=== PATIENT | male | born 1965 | race Caucasian/White ===

== ENCOUNTER 2018-07-02 05:50 | Day surgery (SDC) | payer OTHER ==
[2018-07-02] MEDS ORDERED: Buffered Lidocaine 0.9% SYRIN* 5 ML/SYR SYRINGE INTRADERM ONE (06:00)
[2018-07-02] MEDS ORDERED: Acetaminophen TAB* 325 MG PO ONE (06:00)
[2018-07-02] MEDS ORDERED: Lactated Ringers 1000 ML Bag* 1,000 ML IV SCH ×3 (06:00→12:00)
[2018-07-02] MEDS ORDERED: Naloxone* 0.4 MG/ML 1 ML VIAL IV PRN ×2 (08:22→11:20)
[2018-07-02] MEDS ORDERED: Acetaminophen TAB* 325 MG PO PRN ×4 (08:22→11:18)
[2018-07-02] MEDS ORDERED: fentaNYL* 50 MCG/ML 2 ML VIAL (100 MCG VIAL) IV PRN ×2 (08:22→11:18)
[2018-07-02] MEDS ORDERED: HYDROcodone/ACETAMIN 5-325 MG* 1 TAB PO PRN ×6 (08:22→11:18)
[2018-07-02] MEDS ORDERED: Levalbuterol 0.63MG/3ML NEB* UNIT OF USE INH PRN ×2 (08:22→11:18)
[2018-07-02] MEDS ORDERED: PROCHLORPERAZINE INJ 5 MG/ML 2 ML VIAL IV PRN ×2 (08:22→11:18)
[2018-07-02] MEDS ORDERED: diPHENhydraMINE IV* 50 MG/ML 1 ml VIAL (BENADRYL) IV PRN ×2 (08:22→11:18)
[2018-07-02] MEDS ORDERED: DiMENhydriNATE IV* 50 MG/ML VIAL IV PUSH PRN (08:22)
[2018-07-02] MEDS ORDERED: Scopolamine 1.5 mg* PATCH TRANSDERM PRN ×2 (08:22→11:18)
[2018-07-02] MEDS ORDERED: Magnesium Hydroxide LIQ* 30 ML UDC PO PRN ×2 (09:30→11:18)
[2018-07-02] MEDS ORDERED: Insulin LISPRO* 1 UNITS UNIT SUBCUT SCH (11:30)
[2018-07-02] MEDS: Insulin LISPRO* 1 UNITS UNIT SUBCUT SCH ×3 (13:39→21:01)
[2018-07-02] MEDS ORDERED: Pregabalin CAP(*) 25 MG PO SCH (21:00)
[2018-07-03 07:36] VITALS: BP 142/74
[2018-07-03] MEDS ORDERED: AMLODIPINE PO SCH ×2 (09:00)
[2018-07-03] MEDS ORDERED: VALSARTAN 320 MG PO SCH (09:00)
[2018-07-03] MEDS ORDERED: Pregabalin CAP(*) 25 MG PO SCH (09:00)
[2018-07-03] MEDS ORDERED: Tamsulosin CAP* 0.4 MG PO SCH ×2 (09:00)
[2018-07-03] MEDS ORDERED: Ipratropium HFA INHALER(NF) (ALTERNATIVE = NEBS) INH SCH ×2 (09:00)
[2018-07-03] MEDS ORDERED: Fluticasone NASAL SPRAY 50MCG* 16 gm SPRAY BTL BOTH NARES SCH ×2 (09:00)
[2018-07-03] MEDS ORDERED: amLODIPine TAB* 5 MG PO SCH (09:00)
[2018-07-03] MEDS ORDERED: Valsartan TAB* 160 MG PO SCH (09:00)
[2018-07-03] MEDS ORDERED: Omeprazole CAP* 20 MG PO SCH ×2 (09:00)
[2018-07-03] MEDS ORDERED: Fluticasone-Salmeterol 500-50* DISKUS INH SCH (09:00)
[2018-07-03] MEDS ORDERED: NON FORMULARY MED* (Chlorthalidone [Chlorthalidone] 25 MG) PO SCH (09:00)
[2018-07-03] MEDS ORDERED: ATORVASTATIN PO SCH ×2 (09:00)
[2018-07-03] MEDS ORDERED: Atorvastatin* 10 MG TAB PO SCH (09:00)
[2018-07-03] MEDS ORDERED: Mometasone/Formoter 200/5 MDI INH SCH (09:00)
[2018-07-03] MEDS ORDERED: Escitalopram (NF) 20 MG TAB PO SCH (09:00)
[2018-07-03] MEDS ORDERED: Chlorthalidone TAB* 50 MG PO SCH (09:00)
[2018-07-03] MEDS ORDERED: Citalopram TAB* 40 MG PO SCH (09:00)
[2018-07-03] MEDS: Insulin LISPRO* 1 UNITS UNIT SUBCUT SCH (09:14)
--- NOTE | 2018-07-03 12:04 | PN ---
Progress Note - Progress Note Date of Service: 07/03/18 SOAP: Subjective: [] No events ON. Patient tolerated procedure well. Ambulates, Tolerates PO well, Voids. Patient wants to go home. Objective: []VSS, Afebrile. Wound s,c,d/ Drain output noted. Drain was dc. Catheter appeared to be intact. Patient tolerated procedure well. AAOx3 RAMY, CN II-XII grossly intact ALVINA well Sensory grossly intact to light touch. Assessment: []53 yom POD#1 ACDF Plan: []Monitor VS, Neurochecks Encourage ambulation DC later today. Full instructions were given. Jasmyne Robbins MD
--- NOTE | 2018-07-04 16:03 | OP ---
DATE OF OPERATION: 07/02/18 - [facility] DATE OF : 65 PRIMARY SURGEON: Abdirizak Arroyo MD CHICKEN HANGER: RENEE Vila ANESTHESIA: General. PRE-OP DIAGNOSIS: Cervical spondylosis C5-6 with myelopathy. POST-OP DIAGNOSIS: Cervical spondylosis C5-6 with myelopathy. OPERATIVE PROCEDURE: Anterior cervical diskectomy and allograft fusion C5-6 with anterior instrumentation. DESCRIPTION OF PROCEDURE: After satisfactory general anesthesia was obtained, the patient was placed in the operating room table in a supine position with the head supported on a horseshoe head rest and the neck slightly extended. The anterior aspect of the cervical spine was clipped, prepped, and draped in a sterile manner for anterior cervical exposure and a skin incision outlined over the C5-6 interspace assisted with a knife setter assembler x-ray. This incision was began at the midline and extended to the right side at a distance of 3 cm. This incision was infiltrated with 1% Xylocaine with epinephrine after which it was turned down sharply to the level of the subcutaneous tissues. A superior and inferior based subcutaneous flap was then fashioned and the platysmal muscle divided along the direction of its fibers. Utilizing a combination of sharp and blunt dissection, a dissection plane was carried out between the sternocleidomastoid and strap muscles down to the anterior aspect of the spine. Additional x-rays were obtained showing initial exposure to be at C4-5. Additional inferior exposure was obtained until the proper interspace could be identified. The attachment of longus colli muscle was taken down and self- retaining retractors was placed to facilitate exposure. The initial step in the procedure was removal of a large anterior osteophyte at this level with the Midas Devan drill. The anterior two-thirds of disk material was then removed with a combination of the Midas Devan drill, angled curettes, and pituitary rongeurs. [place]mont distractor pins were then placed in the C5 and C6 vertebral bodies and gentle disk space distraction applied. At this point of the procedure, the operating microscope was brought into the field and the remainder of the procedure done under arthroscopic visualization. Projecting back posteriorly was a significant spur disk complex. The spur was predominantly coming out the superior aspect of C6. This was decompressed with a combination of the Midas Devan drill and Kerrison rongeurs. This was carried back posteriorly until normal dura was encountered. At the conclusion of the decompression, the nerve hook would go out readily with both C6 nerve roots. It was felt that a satisfactory decompression had been achieved. The interspace was prepared for receipt of a several millimeter allograft filled with bony matrix which was slightly countersunk. A Medtronic ZEVO plate was then selected to span from C5-C6 and secured into position with four 13 mm self- drilling screws. After assuring adequate hemostasis, the wound was thoroughly irrigated after which a drain was placed in the prevertebral space and tunneled out through the right side. The subcutaneous tissues were then reapproximated with 3-0 Vicryl and the skin closed with Steri-Strips. The estimated blood loss was less than 50 cc and the final sponge, padding, and needle counts were correct. The patient was taken to the recovery room, extubated, and in stable condition. [id number]/CPS #: [id number] MEAGAN
[2018-07-05] MEDS ORDERED: Scopolamine PATCH Remove* 1 NOTE MISC PATCH OFF ONE ×2 (08:24)
== END 2018-07-03 12:35 | disposition home or self-care (01) ==
LOC: OR 05:50 → SSU 11:18 → OR 07-03 12:35
PROVIDERS: ATTEND Neurological Surgery
DX: M47.12 Other spondylosis with myelopathy, cervical region (principal); M50.122 Cervical disc disorder at C5-C6 level with radiculopathy; E11.40 Type 2 diabetes mellitus with diabetic neuropathy, unspecified; Z79.4 Long term (current) use of insulin; Z79.84 Long term (current) use of oral hypoglycemic drugs; F41.9 Anxiety disorder, unspecified; I10 Essential (primary) hypertension; G47.33 Obstructive sleep apnea (adult) (pediatric); D64.89 Other specified anemias; J45.909 Unspecified asthma, uncomplicated; Z79.899 Other long term (current) drug therapy
CPT/HCPCS: 72020; 94640; A9270-GY; C1713; C1776

== ENCOUNTER 2018-08-22 11:15 | Emergency (ER) | payer OTHER ==
--- NOTE | 2018-08-22 11:33 | UC ---
Throat Pain/Nasal Mg HPI - HPI Summary HPI Summary: Ill for 3 days with sore throat and flu-like symptoms. - History of Current Complaint Stated Complaint: SORE THROAT, COUGH Time Seen by Provider: 08/22/18 11:32 Hx Obtained From: Patient Onset/Duration: Sudden Onset Severity: Mild Cough: Nonproductive Associated Signs & Symptoms: Positive: Nasal Discharge - Epiglottits Risk Factors Epiglottis Risk Factors: Negative - Allergies/Home Medications Allergies/Adverse Reactions: Allergies Allergy/AdvReac Type Severity Reaction Status Date / Time No Known Allergies Allergy Verified 08/22/18 11:28 Home Medications: Home Medications Metformin ER (NF) 500 mg PO BID 08/22/18 [History Confirmed 08/22/18] Naproxen Sodium [Aleve] 220 - 440 mg PO Q8H PRN 08/22/18 [History Confirmed ] Pregabalin CAP(*) [Lyrica CAP(*)] 50 mg PO BID 08/22/18 [History Confirmed 08/22] PMH/Surg Hx/FS Hx/Imm Hx - Additional Past Medical History Additional PMH: Has lost 60 pounds in the past year. Pt is an insulin dependent diabetic and, because of his weight loss, he has been able to lessen his dosing of insulin. His BP has also improved. He has been working with the [employer] in [place] for weight loss. He did get a flu immunization last year. Previously Healthy: Yes Endocrine History: Diabetes - Insulin dependent and takes Metformin but decrerasing since weight loss of 60 pounds in the past year. Cardiovascular History: Hypertension - Surgical History Surgical History: Yes Surgery Procedure, Year, and Place: right shoulder 1981,. left shoulder 1985,. right knee 2002,. hernia 2008, Other Surgical History: Neck surgery with implantaion of cadaver bone at C5 - Family History Known Family History: Positive: None - Social History Alcohol Use: None Substance Use Type: None Smoking Status (MU): Never Smoked Tobacco - Immunization History Most Recent Influenza Vaccination: mar 2018 Most Recent Pneumonia Vaccination: never Review of Systems All Other Systems Reviewed And Are Negative: Yes Constitutional: Positive: Chills, Fatigue Skin: Positive: Negative ENT: Positive: Sore Throat, Nasal Discharge - Clear nasal coryza, Sinus Congestion Respiratory: Positive: Cough - Non-productive cough Cardiovascular: Positive: Negative Gastrointestinal: Positive: Negative Genitourinary: Positive: Negative Motor: Positive: Negative Neurovascular: Positive: Negative, Other - Pt has diabetic foot neuropathy Musculoskeletal: Positive: Negative Neurological: Positive: Negative Psychological: Positive: Negative Is Patient Immunocompromised?: No - Diabetic, so at higher risk of illness Physical Exam - Summary Physical Exam Summary: Does not appear ill, flu-like sympotms started 3 days ago. Triage Information Reviewed: Yes Appearance: Well-Appearing, No Pain Distress, Well-Nourished Vital Signs Reviewed: Yes Eyes: Positive: Conjunctiva Clear ENT Exam: Normal ENT: Positive: Normal ENT inspection, Pharynx normal Neck exam: Normal Neck: Positive: Supple Respiratory Exam: Normal Respiratory: Positive: Lungs clear, Normal breath sounds Cardiovascular Exam: Normal Cardiovascular: Positive: RRR, No Murmur Abdominal Exam: Normal Abdomen Description: Positive: Nontender, Soft Bowel Sounds: Positive: Present Musculoskeletal: Positive: Strength Intact, ROM Intact Neurological: Positive: Alert Psychological Exam: Normal Skin Exam: Normal Throat Pain/Nasal Course/Dx - Course Course Of Treatment: Flu and strep tests negative. RX given for Benzonatate, to increase fluids. Pt has been confortable with no complaints other than post- nasal drainage and sore throat. Measures to help alleviate this were discussed with the patient. - Differential Dx/Diagnosis Differential Diagnosis/HQI/PQRI: URI Provider Diagnosis: URI (upper respiratory infection), Pharyngitis Discharge - Sign-Out/Discharge Documenting (check all that apply): Patient Departure All imaging exams completed and their final reports reviewed: No Studies - Discharge Plan Condition: Good Disposition: HOME Prescriptions: Benzonatate CAP* [Tessalon 100 MG CAP*] 100 mg PO TID #30 cap Patient Education Materials: Upper Respiratory Infection (DC) Referrals: Ophelia Madrid MD [Primary Care Provider] - Additional Instructions: Increase fluids. Follow up with Dr. Madrid if no improvement in 3-4 days. Warm salt water gargles and/or throat lozenges for your sore throat as needed. OTC cold med as discussed with your pharmacist. - Billing Disposition and Condition Condition: GOOD Disposition: Home
[2018-08-22 11:34] VITALS: BP 124/70
[2018-08-22 12:02] LABS: Influenza A Molecular NEGATIVE (Negative); Influenza B Molecular NEGATIVE (Negative)
== END 2018-08-22 12:18 | disposition home or self-care (01) ==
LOC: UCCORT 11:15
DX: J06.9 Acute upper respiratory infection, unspecified (principal); J02.9 Acute pharyngitis, unspecified; E11.40 Type 2 diabetes mellitus with diabetic neuropathy, unspecified; I10 Essential (primary) hypertension; Z79.84 Long term (current) use of oral hypoglycemic drugs
CPT/HCPCS: 87651; 99212; G0463

== ENCOUNTER 2019-01-29 11:51 | Emergency (ER) | payer OTHER ==
[2019-01-29 12:26] VITALS: BP 152/79
--- NOTE | 2019-01-29 12:38 | UC ---
General HPI - HPI Summary HPI Summary: pt is c/o gas, nausea and bloating x 1 week. he has had some constipation but some diarrhea as well. he has had no vomiting. he is a diabetic but notes his BS is good and was in the 90's today. he denies fever and abdominal pain. he had a colonoscopy about 5 years ago the showed polyps only that were removed. pt started Trulicity about 3 weeks ago. - History of Current Complaint Chief Complaint: UCGI Stated Complaint: UPSET STOMACH Time Seen by Provider: 01/29/19 12:29 Hx Obtained From: Patient Onset/Duration: Gradual Onset Timing: Constant Pain Intensity: 0 - Allergy/Home Medications Allergies/Adverse Reactions: Allergies Allergy/AdvReac Type Severity Reaction Status Date / Time No Known Allergies Allergy Verified 01/29/19 12:16 Home Medications: Home Medications Albuterol HFA INHALER* [Ventolin HFA Inhaler*] 1 - 2 puff INH Q4H PRN 01/29/19 [ History Confirmed 01/29/19] Amlodipine/Atorvastatin [Amlodipine Besylate/Atorv 10-10 mg] 1 tab PO DAILY [History Confirmed 01/29/19] Cholecalciferol (Vitamin D3) [Vitamin D3] 2,000 unit PO DAILY 01/29/19 [History Confirmed 01/29/19] Dulaglutide (NF) [Trulicity (NF)] 0.75 mg SUBCUT FR 01/29/19 [History Confirmed 01/29/19] Ferrous Sulfate TAB* 325 mg PO DAILY 01/29/19 [History Confirmed 01/29/19] Oxymetazoline 0.05% NASAL SPR* [Afrin 0.05% NASAL SPRAY*] 2 - 3 spray BOTH NARES Q12H PRN 01/29/19 [History Confirmed 01/29/19] PMH/Surg Hx/FS Hx/Imm Hx - Additional Past Medical History Additional PMH: neuropathy Endocrine History: Diabetes, Dyslipidemia Cardiovascular History: Hypertension GI/ History: Gastroesophageal Reflux - Surgical History Surgical History: Yes Surgery Procedure, Year, and Place: 2 - Rt SHOULDER - 1981, 10/2018 - RTC, BICEP TEAR & DISLOCATION. LT SHOULDER - DISLOCATED - 1985. CSP - 07/02/18 - C5 - CADAVOR BONE, PLATE & SCREWS. Rt KNEE - MMT - ARTHROSCOPIC - 2008. HERNIA - 2002 Other Surgical History: Neck surgery with implantaion of cadaver bone at C5 - Family History Known Family History: Positive: None - Social History Alcohol Use: None Substance Use Type: None Smoking Status (MU): Never Smoked Tobacco Have You Smoked in the Last Year: No - Immunization History Most Recent Influenza Vaccination: mar 2018 Most Recent Pneumonia Vaccination: never Review of Systems All Other Systems Reviewed And Are Negative: Yes Constitutional: Negative: Fever Respiratory: Negative: Shortness Of Breath, Cough Cardiovascular: Negative: Palpitations, Chest Pain Gastrointestinal: Positive: Diarrhea, Nausea. Negative: Abdominal Pain, Vomiting Genitourinary: Negative: Dysuria Psychological: Positive: Negative - of feet Physical Exam Triage Information Reviewed: Yes Appearance: Well-Appearing Vital Signs: Initial Vital Signs Temp 98.1 F 01/29/19 12:14 Pulse 67 01/29/19 12:14 Resp 20 01/29/19 12:14 BP 152/79 01/29/19 12:14 Pulse Ox 99 01/29/19 12:14 Vital Signs Reviewed: Yes Eyes: Positive: Conjunctiva Clear ENT: Positive: Normal ENT inspection Neck: Positive: Supple, Nontender, No Lymphadenopathy Respiratory: Positive: Lungs clear, Normal breath sounds Cardiovascular: Positive: RRR, No Murmur Abdomen Description: Positive: Other: - frequent belching during exam. hypoactive BS, Soft, generalized tenderness with RUQ > rest of abdomen. No mass , HSM or CVA tenderness. no guarding. Musculoskeletal: Positive: ROM Intact Neurological: Positive: Alert Psychological: Positive: Age Appropriate Behavior Skin Exam: Normal Course/Dx - Course Course Of Treatment: I spoke to the pt's primary care, doctor Madrid. I advised of pt's hx and PE. I advised pt directed to go to the ER but is declining. Dr Madrid reports the he is a complicated diabetic for over 10 years and should go to the ER. She states he has many complications from his diabetes as well. She feels he needs labs now that include a cbc and crp. she notes he has compromised renal function. she is hopeful he does not need a contrast CT. I have explained all this to the pt but he is still declining to go right now. I have advised of risk for worsening, disability and . he states " will probably go later". he is a&o x3, able to make decision thus I must respect his wish to refuse the ER transfer. he will be leaving [facility]. - Differential Dx - Multi-Symptom Differential Diagnoses: Other - doubt cardiopulmonary. possible gastoparesis, trulicity side effect or acute abdomen. - Diagnoses Provider Diagnosis: Abdominal pain, Abdominal bloating, Diabetes Discharge - Sign-Out/Discharge Documenting (check all that apply): Patient Departure All imaging exams completed and their final reports reviewed: No Studies - Discharge Plan Condition: Stable Disposition: AGAINST MEDICAL ADVICE Patient Education Materials: Acute Abdominal Pain (DC) Referrals: Ophelia Madrid MD [Primary Care Provider] - As Soon As Possible Additional Instructions: GO TO THE ER AT ANY TIME IF YOU CHANGE YOUR MIND. - Billing Disposition and Condition Condition: STABLE Disposition: Against Medical Advice
== END 2019-01-29 13:25 | disposition left against medical advice (07) ==
LOC: UCCORT 11:51
DX: R10.84 Generalized abdominal pain (principal); R10.11 Right upper quadrant pain; R14.0 Abdominal distension (gaseous); E11.9 Type 2 diabetes mellitus without complications; I10 Essential (primary) hypertension; Z79.84 Long term (current) use of oral hypoglycemic drugs; E78.5 Hyperlipidemia, unspecified; Z86.711 Personal history of pulmonary embolism
CPT/HCPCS: 99212; G0463

== ENCOUNTER 2019-01-29 14:25 | Emergency (ER) | payer OTHER ==
[2019-01-29 16:23] LABS: ABS Basophils 0.1 10^3/ul (0-0.2); ABS Eosinophils 0.2 10^3/ul (0-0.6); ABS Lymphocytes 1.5 10^3/ul (1.0-4.8); ABS Monocytes 0.8 10^3/ul (0-0.8); ABS Neutrophils 6.1 10^3/ul (1.5-7.7); Eosinophil % 2.3 %; Hematocrit 37 % (42-52); Hemoglobin 12.9 g/dL (14.0-18.0); Lymphocyte % 17.3 %; Mean Corpuscular HGB Conc 35 g/dL (31-36); Mean Corpuscular Hemoglobin 26 pg (27-31); Mean Corpuscular Volume 76 fL (80-94); Nucleated Red Blood Cells % 0.1; Platelet Count 260 10^3/uL (150-450); Red Cell Distribution Width 15 % (10-15); White Blood Count 8.7 10^3/uL (3.5-10.8)
[2019-01-29 16:55] LABS: Albumin 4.4 g/dL (3.2-5.2); Albumin/Globulin Ratio 1.7 (1-3); BUN/Creatinine Ratio 17.4 (8-20); C Reactive Protein 1.86 mg/L (<8.01); Calcium 9.8 mg/dL (8.6-10.3); EGFR African American 75.9 (>60); EGFR Non-African American 62.7 (>60); Globulin 2.6 g/dL (2-4); Potassium 4.1 mmol/L (3.5-5.0); Total Bilirubin 0.4 mg/dL (0.2-1.0)
[2019-01-29] MEDS ORDERED: NS 0.9% 1000 ML** 1,000 ML IV ONE (19:58)
[2019-01-29] MEDS ORDERED: Ondansetron INJ* 2 MG/ML VIAL IV ONE (19:58)
[2019-01-29] MEDS ORDERED: Metoclopramide TAB* 10 MG PO ONE (20:06)
[2019-01-29] MEDS ORDERED: Lidocaine 2% VISCOUS* 15 ML UDC PO ONE (20:07)
[2019-01-29] MEDS ORDERED: Al Hydrox/Mg Hydrox/Simet LIQ* 30 ML UDC PO ONE (20:07)
--- NOTE | 2019-01-29 20:12 | ED ---
Complex/Multi-Sys Presentation - HPI Summary HPI Summary: This patient is a 53 year old M [facility] by with a chief complaint of nausea since 1 week ago. Patient reports nausea, and nml urination. Patient denies diarrhea currently. Pt had diarrhea 1 week ago. Pt last BM was 6-7 hours ago and was nml. Pt also had gas and bloating. Pt has PMHx of diabetes (since 2008), neuropathy in legs. Pt had a hernia in abdomen. Per triage symptoms were not alleviated by pepto bismol. - History Of Current Complaint Chief Complaint: EDNauseaVomitDiarrh Time Seen by Provider: 01/29/19 19:59 Hx Obtained From: Patient Onset/Duration: Lasting Weeks, Still Present Timing: Constant, Weeks Severity Currently: None Aggravating Factor(s): Nothing Alleviating Factor(s): Nothing Associated Signs And Symptoms: Positive: Nausea. Negative: Diarrhea, Dysuria - Allergies/Home Medications Allergies/Adverse Reactions: Allergies Allergy/AdvReac Type Severity Reaction Status Date / Time No Known Allergies Allergy Verified 01/29/19 14:37 PMH/Surg Hx/FS Hx/Imm Hx Endocrine/Hematology History: Reports: Hx Diabetes Denies: Hx Thyroid Disease Cardiovascular History: Reports: Hx Hypertension Denies: Hx Pacemaker/ICD, Other Cardiovascular Problems/Disorders Respiratory History: Reports: Hx Asthma, Hx Sleep Apnea Denies: Hx Chronic Obstructive Pulmonary Disease (COPD), Other Respiratory Problems/Disorders GI History: Reports: Hx Gastroesophageal Reflux Disease - omeprazole Denies: Hx Ulcer, Other GI Disorders History: Reports: Other Problems/Disorders - Enlarged prostate Denies: Hx Dialysis, Hx Renal Disease Musculoskeletal History: Reports: Hx Arthritis, Other Musculoskeletal History - Cervical disc disorder C5-6 Denies: Hx Tendonitis Sensory History: Reports: Hx Contacts or Glasses - READING GLASSES Denies: Hx Hearing Aid Opthamlomology History: Reports: Hx Contacts or Glasses - READING GLASSES Neurological History: Reports: Hx Headaches Denies: Other Neuro Impairments/Disorders Comment Only: Hx Nerve Disease - Diabetic neuropathy bilateral feet Psychiatric History: Reports: Hx Anxiety - HX OF, Hx Depression - HX OF Denies: Hx Panic Disorder - Surgical History Surgery Procedure, Year, and Place: 2 - Rt SHOULDER - 1981, 10/2018 - RTC, BICEP TEAR & DISLOCATION. LT SHOULDER - DISLOCATED - 1985. CSP - 07/02/18 - C5 - CADAVOR BONE, PLATE & SCREWS. Rt KNEE - MMT - ARTHROSCOPIC - 2008. HERNIA - 2002 Hx Anesthesia Reactions: No Infectious Disease History: No Infectious Disease History: Denies: Hx Clostridium Difficile, Hx Hepatitis, Hx Human Immunodeficiency Virus (HIV), Hx of Known/Suspected MRSA, Hx Shingles, Hx Tuberculosis, Traveled Outside the [place] in Last 30 Days - Social History Alcohol Use: None Substance Use Type: Reports: None Smoking Status (MU): Never Smoked Tobacco Have You Smoked in the Last Year: No Review of Systems Positive: Nausea, Other - pos - bloating, gas. Negative: Diarrhea Negative: dysuria All Other Systems Reviewed And Are Negative: Yes Physical Exam - Summary Physical Exam Summary: VITAL SIGNS: Reviewed. GENERAL: Patient is a well-developed and nourished male who is lying comfortable in the stretcher. Patient is not in any acute respiratory distress. HEAD AND FACE: No signs of trauma. No ecchymosis, hematomas or skull depressions. No sinus tenderness. EYES: PERRLA, EOMI x 2, No injected conjunctiva, no nystagmus. EARS: Hearing grossly intact. Ear canals and tympanic membranes are within normal limits. MOUTH: Oropharynx within normal limits. NECK: Supple, trachea is midline, no adenopathy, no JVD, no carotid bruit, no c- spine tenderness, neck with full ROM CHEST: Symmetric, no tenderness at palpation LUNGS: Clear to auscultation bilaterally. No wheezing or crackles. CVS: Regular rate and rhythm, S1 and S2 present, no murmurs or gallops appreciated. ABDOMEN: Soft, non-tender. Abdominal distention. No rebound no guarding, and no masses palpated. Hypoactive bowel sounds. EXTREMITIES: FROM in all major joints, no edema, no cyanosis or clubbing. NEURO: Alert and oriented x 3. No acute neurological deficits. Speech is normal and follows commands. SKIN: Dry and warm Triage Information Reviewed: Yes Vital Signs On Initial Exam: Initial Vitals Temp Pulse Resp BP Pulse Ox 97.8 F 70 16 148/88 97 01/29/19 14:32 01/29/19 14:32 01/29/19 14:32 01/29/19 14:32 01/29/19 14:32 Vital Signs Reviewed: Yes Diagnostics - Vital Signs Vital Signs Temp Pulse Resp BP Pulse Ox 01/29/19 19:55 64 95 01/29/19 18:22 98.5 F 63 16 171/81 97 01/29/19 16:26 98.4 F 66 16 146/78 98 01/29/19 14:32 97.8 F 70 16 148/88 97 - Laboratory Lab Results: Lab Results 01/29/19 01/29/19 01/29/19 Range/Units 16:13 16:13 16:13 WBC 8.7 (3.5-10.8) 10^3/uL RBC 4.90 (4.18-5.48) 10^6 /uL Hgb 12.9 L (14.0-18.0) g/dL Hct 37 L (42-52) % MCV 76 L (80-94) fL MCH 26 L (27-31) pg MCHC 35 (31-36) g/dL RDW 15 (10-15) % Plt Count 260 (150-450) 10^3/uL MPV 9.0 (7.4-10.4) fL Neut % (Auto) 70.1 % Lymph % (Auto) 17.3 % Glades % (Auto) 9.6 % Eos % (Auto) 2.3 % Baso % (Auto) 0.7 % Absolute Neuts (auto) 6.1 (1.5-7.7) 10^3/ul Absolute Lymphs (auto) 1.5 (1.0-4.8) 10^3/ul Absolute Monos (auto) 0.8 (0-0.8) 10^3/ul Absolute Eos (auto) 0.2 (0-0.6) 10^3/ul Absolute Basos (auto) 0.1 (0-0.2) 10^3/ul Absolute Nucleated RBC 0.0 10^3/ul Nucleated RBC % 0.1 Sodium 138 (135-145) mmol/L Potassium 4.1 (3.5-5.0) mmol/L Chloride 102 (101-111) mmol/L Carbon Dioxide 29 (22-32) mmol/L Anion Gap 7 (2-11) mmol/L BUN 21 (6-24) mg/dL Creatinine 1.21 H (0.67-1.17) mg/dL Est GFR ( Amer) 75.9 (>60) Est GFR (Non-Af Amer) 62.7 (>60) BUN/Creatinine Ratio 17.4 (8-20) Glucose 97 (70-100) mg/dL Lactic Acid 0.8 (0.5-2.0) mmol/L Calcium 9.8 (8.6-10.3) mg/dL Total Bilirubin 0.40 (0.2-1.0) mg/dL AST 20 (13-39) U/L ALT 23 (7-52) U/L Alkaline Phosphatase 62 (34-104) U/L C-Reactive Protein 1.86 (<8.01) mg/L Total Protein 7.0 (6.4-8.9) g/dL Albumin 4.4 (3.2-5.2) g/dL Globulin 2.6 (2-4) g/dL Albumin/Globulin Ratio 1.7 (1-3) Lipase 28 (11.0-82.0) U/L Result Diagrams: 01/29/19 16:13 01/29/19 16:13 Lab Statement: Any lab studies that have been ordered have been reviewed, and results considered in the medical decision making process. - Radiology Abdomen X-Ray Radiology Interpretation Completed By: ED Physician Summary of Radiographic Findings: Abdomen X-Ray reveals, per ED physician,. Increase colonic stool, consistent with constipation. ED physician has reviewed this radiology report. Pending official radiology report. Re-Evaluation - Re-Evaluation First Eval Re-Evaluation Time: 21:24 Comment: Discussed plan of care with pt. Complex Multi-Symp Course/Dx Course Of Treatment: This patient is a 53 year old M [facility] accompanied by with a chief complaint of nausea since 1 week ago. Patient reports nausea, and nml urination. Patient denies diarrhea currently. Pt had diarrhea 1 week ago. Pt last BM was 6-7 hours ago and was nml. Pt also had gas and bloating. Pt has PMHx of diabetes (since 2008), neuropathy in legs. Pt had a hernia in abdomen. Per triage symptoms were not alleviated by pepto bismol. Physical Exam Findings are nml, except for abdomen distention, and hypoactive bowel sounds. Blood work obtained. Hgb is 12.0, Hct is 37, MCV is 76, MCH is 26 , Creatinine is 1.21. UA obtained. Abdomen X-Ray reveals, per ED physician,. Increase colonic stool, consistent with constipation. Pending official radiology report. In the ED course the patient was given Metoclopramide, Lidocaine, Al Hydrox, and Zofran inj. Patient will be discharged with follow up from PCP. The patient is agreeable with this plan. - Diagnoses Provider Diagnoses: Abdominal pain, Constipation Discharge - Sign-Out/Discharge Documenting (check all that apply): Patient Departure - Discharge Patient Received Moderate/Deep Sedation with Procedure: No - Discharge Plan Condition: Stable Disposition: HOME Patient Education Materials: Constipation (ED), Abdominal Pain (ED) Referrals: Ophelia Madrid MD [Primary Care Provider] - 3 Days Additional Instructions: PLEASE RETURN TO THE ED IMMEDIATELY FOR WORSENING OR CONCERNING SYMPTOMS. FOLLOW UP WITH PRIMARY CARE PHYSICIAN WITHIN 3 DAYS. - Billing Disposition and Condition Condition: STABLE Disposition: Home - Attestation Statements Document Initiated by Viviana: Yes Documenting Scribe: Lena Barnes Provider For Whom Viviana is Documenting (Include Credential): Dr. Kesha Estes MD Scribe Attestation: Lena Duarte scribed for Dr. Kesha Estes MD on 01/30/19 at 0640. Scribe Documentation Reviewed: Yes Provider Attestation: The documentation as recorded by the Lena weston accurately reflects the service I personally performed and the decisions made by , Dr. Kesha Estes MD Status of Scribe Document: Viewed
[2019-01-29] MEDS ORDERED: Magnesium CITRATE* 300 ML BTL PO ONE (21:05)
[2019-01-29] MEDS ORDERED: Bisacodyl SUPP* 10 MG SUPP PR ONE (21:05)
[2019-01-29 21:14] LABS: Urine Appearance Clear; Urine Bilirubin Negative (Negative); Urine Blood Negative (Negative); Urine Color Straw; Urine Glucose Negative (Negative); Urine Ketones Negative (Negative); Urine Nitrite Negative (Negative); Urine Protein Negative (Negative); Urine Specific Gravity 1.005 (1.010-1.030); Urine Urobilinogen Negative (Negative)
[2019-01-29 21:37] VITALS: BP 139/74
== END 2019-01-29 21:37 | disposition home or self-care (01) ==
LOC: ED 14:25
DX: R10.9 Unspecified abdominal pain (principal); K59.00 Constipation, unspecified; R11.0 Nausea; E11.42 Type 2 diabetes mellitus with diabetic polyneuropathy; I10 Essential (primary) hypertension; K21.9 Gastro-esophageal reflux disease without esophagitis
CPT/HCPCS: 36415; 74019; 80053; 81003; 83605; 83690; 85025; 86140; 96361; 96374; 99282; A9270-GY; J2405

== ENCOUNTER 2021-03-09 07:53 | Inpatient (IN) ==
[~2021-03-09 07:53] MED LIST: Buffered Lidocaine 1% SYRIN 1 ml INTRADERM ONE; HYDROcodone/ACETAMIN 5/325 mg TAB PO PRN; Lactated Ringers 1000 ml BAG 1,000 ML IV SCH; Metoclopramide 5 MG/ML VIAL (10 mg) IV PRN; Naloxone 0.4 mg VIAL 0.4 mg/ml 1 ml VIAL IV PRN; Ondansetron 4 mg VIAL 2 MG/ML 2 ml VIAL IV PRN
[2021-03-09] MEDS ORDERED: Buffered Lidocaine 1% SYRIN 1 ml INTRADERM ONE (08:48)
[2021-03-09] MEDS ORDERED: ceFAZolin 2 GM in NS PREMIX 2 GM/100 ML BAG IVPB ONE (08:48)
[2021-03-09] MEDS ORDERED: ceFAZolin 1 GM ADVAN 1 GM ADDV.VIAL IVPB ONE (08:48)
[2021-03-09] MEDS ORDERED: Heparin 5000 UNITS/ML 1 mL VIAL ONE (08:48)
[2021-03-09] MEDS ORDERED: Methylene Blue 0.5 % 50 MG/10 ML AMP IV ONE (09:14)
[2021-03-09] MEDS ORDERED: Lidocaine 1% w EPI 1:100,000 MDV 20 ML VIAL ONE (09:14)
[2021-03-09] MEDS ORDERED: Bupivacaine 0.5% 50 ML MDV VIAL ONE (09:15)
[2021-03-09] MEDS ORDERED: Rocuronium 50 mg VIAL 10 mg/ml 5 ml VIAL (50 mg) ONE ×2 (09:29→10:25)
[2021-03-09] MEDS ORDERED: Midazolam 2 mg/2 ml VIAL 1 mg/ml 2 ml VIAL (2 mg) ONE (09:30)
[2021-03-09] MEDS ORDERED: fentaNYL 250 mcg/5 ml 50 MCG/ML 5 ml VIAL (250 MCG) ONE (09:30)
[2021-03-09] MEDS ORDERED: Ondansetron 4 mg VIAL 2 MG/ML 2 ml VIAL ONE ×2 (12:13→13:08)
[2021-03-09] MEDS ORDERED: Dexamethasone IV 4 MG/ML VIAL 1 ml VIAL ONE (12:13)
[2021-03-09] MEDS ORDERED: HYDROcodone/ACET. 7.5/325 LIQ 15 ML UDC PO PRN (12:30)
[2021-03-09] MEDS ORDERED: HYDROmorphone 0.5 MG/0.5 ML SYRINGE IV SLOW PU PRN (12:30)
[2021-03-09] MEDS ORDERED: Ondansetron 4 mg VIAL 2 MG/ML 2 ml VIAL IV PRN (12:30)
[2021-03-09] MEDS ORDERED: Dextrose 50% Syringe 50 ml 25 GM/50 ML SYRINGE IV PUSH PRN (12:33)
[2021-03-09] MEDS ORDERED: Metoclopramide 5 MG/ML VIAL (10 mg) ONE (12:50)
[2021-03-09] MEDS ORDERED: fentaNYL 100 mcg/2 ml 50 MCG/ML VIAL ONE (13:18)
[2021-03-09] MEDS: fentaNYL 100 mcg/2 ml 50 MCG/ML VIAL IV PRN ×2 (13:19→13:34)
[2021-03-09] MEDS: Lactated Ringers 1000 ml BAG 1,000 ML IV SCH (14:20)
[2021-03-09] MEDS: Heparin 5000 UNITS/ML 1 mL VIAL SUBCUT SCH (22:17)
[2021-03-10] MEDS: Lactated Ringers 1000 ml BAG 1,000 ML IV SCH ×2 (04:21→11:22)
[2021-03-10] MEDS: Heparin 5000 UNITS/ML 1 mL VIAL SUBCUT SCH ×2 (05:30→14:17)
[2021-03-10] MEDS ORDERED: Flu vaccine *QUAD* 2021-22* 0.5 ML SYRINGE IM ONE (09:00)
[2021-03-10 11:37] VITALS: BP 164/89
[2021-03-10] MEDS ORDERED: D5W 1/2 NS KCl 20 meq 1000 ml 1,000 ML IV SCH (13:00)
[2021-03-12] MEDS ORDERED: Scopolamine PATCH Remove NOTE PATCH OFF ONE (09:00)
== END 2021-03-10 15:50 | disposition home or self-care (01) | DRG 621 ==
LOC: AA 07:53 → SSU 14:21
PROVIDERS: ADMIT Surgery; ATTEND Surgery